=== PATIENT | male | born 1940 | race Caucasian/White ===

== ENCOUNTER 2016-09-19 07:28 | Day surgery (SDC) | payer OTHER ==
--- NOTE | 2016-09-17 13:55 | EKG Report ---
Test Performed on : 09/17/2016 1:48:36 PM Test Reason : PAT Blood Pressure : / mmHG Vent. Rate : 066 BPM Atrial Rate : 066 BPM P-R Int : 172 ms QRS Dur : 100 ms QT Int : 412 ms P-R-T Axes : 065 -18 020 degrees QTc Int : 431 ms Normal sinus rhythm. Normal ECG When compared with ECG of 09-JUL-2013 09:57, premature atrial complexes. are no longer present Confirmed by Sidney CONNELLY, Emilio Urban ([id number]) on 09/17/2016 4:28:34 PM
[2016-09-17 14:07] LABS: HEMOGLOBIN 15.4 g/dL (14.0-18.0); MCH 32.3 PG (27-31); MCHC 34.2 g/dL (33-37); MCV 94.3 FL (81-99); MPV 10.7 FL (7.4-10.4); RBC 4.77 XMIL (4.7-6.1)
[2016-09-17 14:43] LABS: AGAP 12; BUN 13 mg/dL (8-22); CALCIUM 8.8 mg/dL (8.8-10.2); CHLORIDE 102 mmol/L (98-107); COSMO 284; POTASSIUM 3.9 mmol/L (3.5-5.1); SODIUM 142 mmol/L (136-145); TCO2 28 mmol/L (25-35)
[~2016-09-19 07:28] MED LIST: KEFZOL 1 GM/D5W 50 ML ONE; LR 1,000 ML ONE; PEPCID ONE; REGLAN ONE
[2016-09-19] MEDS ORDERED: BACITRACIN OINTMENT ONE (09:00)
[2016-09-19] MEDS ORDERED: MARCAINE 0.5% ONE (09:00)
[2016-09-19] MEDS ORDERED: DIPRIVAN 1% ONE (10:27)
[2016-09-19] MEDS ORDERED: FENTANYL ONE (10:27)
[2016-09-19] MEDS ORDERED: EPHEDRINE ONE (10:46)
[2016-09-19] MEDS ORDERED: ZOFRAN ONE (10:46)
[2016-09-19] MEDS ORDERED: OFIRMEV 1000 MG/ISOTONIC SOLN 100 ML ONE (10:46)
[2016-09-19] MEDS ORDERED: CLAVE SECONDARY SET 11953 ONE (10:46)
[2016-09-19] MEDS ORDERED: XYLOCAINE-MPF 2% ONE (10:46)
[2016-09-19] MEDS ORDERED: DECADRON ONE (10:46)
[2016-09-19 11:41] VITALS: BP 162/86
--- NOTE | 2016-09-19 12:06 | OPERATIVE NOTE ---
PROCEDURE DATE: 09/19/2016 DATE OF SURGERY: 09/19/2016. SURGEON: Dr. Leandro Livingston. PREOPERATIVE DIAGNOSIS: Left spermatocele with left scrotal pain. POSTOPERATIVE DIAGNOSIS: Left spermatocele with left scrotal pain plus left hydrocele. ANESTHESIA: General via laryngeal mask. PROCEDURE PERFORMED: Left hydrocelectomy and spermatocelectomy. FINDINGS: Large left hydrocele, as well as spermatocele. INDICATION FOR PROCEDURE: This 76-year-old male has a history of chronic left scrotal pain. Evaluation revealed a left spermatocele and possible left hydrocele. DESCRIPTION OF PROCEDURE: After informed consent was obtained, the patient receiving IV antibiotics, he was taken to the main OR, placed in a supine position. General anesthesia via laryngeal mask was achieved. He was then prepped and draped in the usual sterile fashion for penile and scrotal surgery. A longitudinal skin incision was made over the scrotal raphe, coming down on the left testis. The dartos tunica was incised with the Bovie electrocautery. The testis was delivered and sharply dissected free of the dartos tunica. The tunica vaginalis was incised, and a large amount of fluid was seen around the testis consistent with hydrocele. A portion of the hydrocele sac was excised and sent to pathology. The epididymis was visualized and noted to have a cystic area at the head that was very tense, consistent with the left spermatocele. The epididymis was bluntly and sharply dissected free. The epididymis was crossclamped in the mid epididymis. The proximal end was stick-tied with 2-0 Vicryl. The distal end was dissected back to the efferent ducts, staying away from the testicular artery. The efferent ducts were crossclamped with a Pean clamp. The epididymis with spermatocele was excised and sent to pathology in its own container. The efferent ducts were oversewn with a running horizontal mattress suture of 2-0 Vicryl. After this suture was placed, the testis was irrigated. Hemostasis was completed with the Bovie electrocautery. Approximately 5 mL of 0.5% Marcaine without epinephrine was injected in the cord. The testis was returned to the scrotum in the anatomic position. The dartos tunica was reapproximated with a running locking suture of 3-0 chromic. The skin was reapproximated with a running simple suture of 3-0 chromic. Approximately 2 mL of 0.5% Marcaine were injected subcutaneously. Along the scrotal wound, a small amount of bacitracin ointment was placed. An OpSite was placed. A scrotal turban dressing using Polo was placed. This was reinforced with fluff gauze and a scrotal support was placed. He tolerated the procedure well. Estimated blood loss less than 5 mL. He was taken to the recovery room in good condition.
== END 2016-09-19 11:30 | disposition home or self-care (01) ==
LOC: PAT 07:28
PROVIDERS: ATTEND Urology
DX: N43.41 Spermatocele of epididymis, single (principal); N43.3 Hydrocele, unspecified; J44.9 Chronic obstructive pulmonary disease, unspecified; N40.0 Benign prostatic hyperplasia without lower urinary tract symptoms; I10 Essential (primary) hypertension
CPT/HCPCS: 80048; 85027; 88302; 88304; 93005; 93010; J0131; J0690; J1100; J2405; J3010; J7120; S0020

== ENCOUNTER 2018-08-29 19:00 | Inpatient (IN) ==
[2018-08-29 19:34] LABS: BASO# 0.03 X1000 (0.0-0.2); BASO% 0.4 % (0.0-0.8); EOS# 0.51 X1000 (0.0-0.7); EOS% 6.1 % (0.0-10.0); HEMATOCRIT 43.9 % (42.0-52.0); HEMOGLOBIN 14.5 g/dL (14.0-18.0); LYMPH# 1.75 X1000 (1.2-3.4); LYMPH% 20.8 % (20.5-51.1); MCH 31.4 PG (27-31); MONO% 9.5 % (1.7-9.3); MPV 10.8 FL (7.4-10.4); NEUT# 5.32 X1000 (1.4-6.5); NEUT% 63.2 % (42.2-75.2); PLT 211 X1000 (130-400); RBC 4.62 XMIL (4.7-6.1); RDW 13.1 % (11.5-14.5); WBC 8.41 X1000 (4.8-10.8)
[2018-08-29 19:42] LABS: INR 0.89; PROTIME 12.8 Seconds (11.0-16.0)
[2018-08-29 19:43] LABS: PTT 28.2 Seconds (22.3-41.8)
[2018-08-29 19:59] LABS: AGAP 13; ALB/GLOB RATIO 1.8; ALBUMIN 4.4 g/dL (3.5-5.0); ALKALINE PHOSPHATASE 91 U/L (32-122); BUN 17 mg/dL (8-22); CALCIUM 9.2 mg/dL (8.8-10.2); CHLORIDE 107 mmol/L (98-107); COSMO 292; CREATININE 1.1 mg/dL (0.7-1.2); ESTIMATED GFR > 60; GLUCOSE 133 mg/dL (70-104); GOT 24 U/L (10-34); GPT 19 U/L (10-44); SODIUM 145 mmol/L (136-145); TCO2 25 mmol/L (25-35); TOTAL BILIRUBIN 0.96 mg/dL (0.20-1.00); TOTAL PROTEIN 6.8 g/dL (6.3-8.3)
[2018-08-30 00:50] LABS: HEMATOCRIT 42.4 % (42.0-52.0); HEMOGLOBIN 14.1 g/dL (14.0-18.0)
--- NOTE | 2018-08-30 01:16 | PROVIDER DOCUMENTATION ---
This chart was entered by Sarah Hankins Scribe, acting as scribe for Chandler Chao MD. HPI-Abdominal Pain/GI Problem - General Chief Complaint: GI Bleed Stated Complaint: RECTAL BLEEDING Time Seen by Provider: 08/29/18 23:52 Source: patient Allergies/Adverse Reactions: Patient Allergies Allergy/AdvReac Type Severity Reaction Status Date / Time No Known Allergies Allergy Verified 08/30/18 00:34 Home Medications: Home Medication List Medication Instructions Recorded Confirmed Last Taken Type Aspirin [Aspirin EC] 81 mg PO DAILY 07/09/13 09/19/16 09/09/16 History 81 PRAVAstatin [Pravachol] 40 mg PO DAILY 07/09/13 09/19/16 09/19/16 05:00 History 40 Zolpidem [Ambien] 10 mg PO DAILY 07/09/13 09/19/16 09/18/16 22:15 History 10 Amlodipine Besylate 10 mg PO DAILY 11/03/14 09/19/16 09/19/16 05:00 History 10 Multivitamin [Wff-Pcdprz-Eweky] 1 tab PO DAILY 11/03/14 09/19/16 09/18/16 07:00 History 1 Potassium Chloride E.r. [Klor-Con] 20 meq PO DAILY 11/03/14 09/19/16 09/18/16 07 :00 History 20 Tamsulosin [Flomax] 0.4 mg PO DAILY 09/17/16 09/19/16 09/18/16 12:00 History 0.4 Hydrocodone/Acetaminophen [[place] 1 each PO Q4H PRN PRN #15 tablet 09/19/16 Unknown Rx 10-325 Tablet] - History of Present Illness-ABD Nature of Presenting Problems: Pt is 78/m presenting to ED w/ rectal bleeding that just started today. He sts that he has had some recent lower back pain. He sts that he has no pain and a normal appetite. Blood is bright red. hx of HTN, stent and takes 1 80mg asprin per day. Abdominal Pain Onset Location: reports: other (No pain) Quality of Pain: reports: none Severity in ED: reports: moderate Onset/Duration: reports: this morning Timing: reports: still present Activities at Onset: reports: none Exposure to sick contacts?: Yes Modifying Factors: improves with: nothing, defecating (bleeding with defecation) Associated Symptoms: reports: denies symptoms Last BM: this evening Dark Stools Present?: reports: bright red blood Rectal Bleeding: reports: blood mixed with stool, bloody diarrhea Review of Systems - Adult - REVIEW OF SYSTEMS - ADULT Constitutional: denies: chills, fever Eyes: reports: no symptoms reported Ears, Nose, Mouth & Throat: reports: no symptoms reported Cardiovascular: reports: no symptoms reported. denies: chest pain, edema Respiratory: reports: no symptoms reported Gastrointestinal: reports: rectal bleeding. denies: abdominal pain, hematemesis , nausea, poor appetite, vomiting Genitourinary: reports: no symptoms reported Integumentary: reports: no symptoms reported Neurological: reports: no symptoms reported Psychiatric: reports: no symptoms reported Endocrine: reports: no symptoms reported Hematologic/Lymphatic: reports: no symptoms reported Allergic/Immunologic: reports: no symptoms reported All Other Systems: Reviewed and Negative Past History - Adult - PAST MEDICAL HISTORY-ADULT Review of Records: reports: Old Records Reviewed, Nursing Assessment Review, Medications Reviewed, Social history reviewed & non-contributory. Major Childhood Illnesses: reports: denies history Cardiovascular: reports: CAD, HTN, hyperlipidemia Respiratory: reports: COPD Neurological: reports: CVA - PRIOR SURGERIES/PROCEDURES Surgical/Procedure History: reports: cholecystectomy, cardiac stent, joint replacement - IMMUNIZATION STATUS Flu Vaccine: See Nurse Assessment - FAMILY HISTORY Family History: reviewed, not pertinent - SOCIAL HISTORY Smoking: denies, non-smoker Substance Use: none/never Alcohol Use Frequency: never Living Situation: family Physical Exam-General - PHYSICAL EXAM-ADULT Initial Vital Signs Reviewed: Yes - CONSTITUTIONAL General Appearance: appears well, alert, no apparent distress - EYES Eyes: PERRL/EOMI - HEAD, EARS, NOSE, MOUTH & THROAT HENMT: normocephalic/atraumatic, moist mucous membranes, normal ENT inspection, TMs normal, pharynx normal - NECK Neck: non-tender, full range of motion, supple, normal inspection - RESPIRATORY Respiratory: chest non-tender, lungs clear, normal breath sounds - CARDIOVASCULAR Cardiovascular: regular rate, rhythm. 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 nml as tested, grossly normal - PSYCHIATRIC Psych/Mental Status: normal mood/affect, normal thought content, normal thought process, oriented x 3 Progress - PLAN OF CARE/RESULTS Progress/Plan/Lab Results: Vital Signs - 8 hr 08/29/18 19:10 08/29/18 23:51 Temperature 97.6 F Pulse Rate 79 75 Respiratory Rate 18 18 Blood Pressure 153/72 166/79 O2 Sat by Pulse Oximetry 97 97 08/29/18 19:39 Stool Occult Blood (TOMASA) - Final Stool Laboratory Results - last 24 hr 08/29/18 08/29/18 08/29/18 19:15 19:15 19:15 WBC 8.41 RBC 4.62 L Hgb 14.5 Hct 43.9 MCV 95.0 MCH 31.4 H MCHC 33.0 RDW Std Deviation 13.1 Plt Count 211 MPV 10.8 H Immature Gran % (Auto) 0.0 Neut % (Auto) 63.2 Lymph % (Auto) 20.8 Grady % (Auto) 9.5 H Eos % (Auto) 6.1 Baso % (Auto) 0.4 Immature Gran # (Auto) 0.00 Neut # (Auto) 5.32 Lymph # (Auto) 1.75 Grady # (Auto) 0.80 H Eos # (Auto) 0.51 Baso # (Auto) 0.03 PT 12.8 INR 0.89 PTT (Actin FS) 28.2 Sodium 145 Potassium 4.0 Chloride 107 Carbon Dioxide 25 Anion Gap 13 BUN 17 Creatinine 1.1 Estimated GFR/1.73 m2 > 60 BUN/Creatinine Ratio 15 Glucose 133 H Calculated Osmolality 292 Calcium 9.2 Total Bilirubin 0.96 AST 24 ALT 19 Alkaline Phosphatase 91 Total Protein 6.8 Albumin 4.4 Globulin 2.4 Albumin/Globulin Ratio 1.8 08/30/18 00:25 WBC RBC Hgb 14.1 Hct 42.4 MCV MCH MCHC RDW Std Deviation Plt Count MPV Immature Gran % (Auto) Neut % (Auto) Lymph % (Auto) Grady % (Auto) Eos % (Auto) Baso % (Auto) Immature Gran # (Auto) Neut # (Auto) Lymph # (Auto) Grady # (Auto) Eos # (Auto) Baso # (Auto) PT INR PTT (Actin FS) Sodium Potassium Chloride Carbon Dioxide Anion Gap BUN Creatinine Estimated GFR/1.73 m2 BUN/Creatinine Ratio Glucose Calculated Osmolality Calcium Total Bilirubin AST ALT Alkaline Phosphatase Total Protein Albumin Globulin Albumin/Globulin Ratio Orders Category Date Time Status CBC WITH ELECTRONIC DIFF [HEME] Stat Lab 08/29/18 19:15 Completed COMPREHENSIVE METABOLIC PANEL [CHEM] Stat Lab 08/29/18 19:15 Completed H/H [HGB AND HCT] [HEME] Stat Lab 08/30/18 00:25 Completed OCCULT BLOOD SCREENING [STOOL] Stat Lab 08/29/18 19:39 Completed PROTIME WITH INR [COAG] Stat Lab 08/29/18 19:15 Completed PTT [COAG] Stat Lab 08/29/18 19:15 Completed GI Bleed (possible) Stat Oth 08/29/18 19:16 Ordered Result Diagrams: 08/30/18 00:25 08/29/18 19:15 Departure - Departure Date of Disposition Decision: 08/30/18 Time of Disposition Decision: 00:56 DIAGNOSIS: BRBPR (bright red blood per rectum) Disposition: HOME 01 Certified Medical Emergency: Emergent Condition: Good Additional Freetext Instructions: ED Follow Up Instructions: You have been treated by a care provider in the Emergency Department. These instructions are being provided to you so you can have an understanding of how to care for yourself upon discharge. Upon discharge from the Emergency Department, you are responsible for making arrangements for follow-up care by a physician of your choice. Take all prescribed medications as directed. Return to the Emergency Department immediately for any new or worsening symptoms. You may call the Physician Referral phone number at [phone] to obtain a list of Physicians who are taking new patients. CALL AND FOLLOW UP WITH YOUR GASTROINTESTINAL DOCTOR WITHIN [address] MC'S OFFICE TOMORROW AND MAKE AN APPOINTMENT. Referrals and Follow-Ups: Viral Mc MD [ACTIVE STAFF PHYSICIAN] - Theron Edgar MD [Primary Care Provider] - - Critical Care Note This patient required my direct & personal management of CC.: No Attestation - Physician/ MARGARET Attestation Patient care was provided by Advanced Practice Provider:: No The physician spent face to face time with patient:: Yes Advanced Practice Provider documentation review:: Supervising physician onsite and consulted in the evaluation and care of this patient. The physician did have a face to face encounter with the patient. This chart was documented by the indicated scribe, (Sarah Hankins Scribe) and accurately reflects the services I performed and decisions made by me, Chandler Chao MD, as attested by the provider's signature.
--- NOTE | 2018-08-30 02:30 | HISTORY AND PHYSICAL ---
PRIMARY CARE PHYSICIAN: Dr. Edgar. CHIEF COMPLAINT: Bright red blood per rectum. HISTORY OF PRESENTING ILLNESS: A 78-year-old male with a history of hypertension, coronary artery disease, who had presented to the emergency department with 2 days' history of having bright red blood per rectum. The patient states that he had about 5 episodes of if. The patient states that he was feeling weak, and subsequently had come to the emergency department. In the ED, he was evaluated, and as per ER physician, he had gross blood that was seen. Due to his presenting symptoms, it was thought that he would need admission for further management. At the time of my examination, he had denied any headache, fever, chills, chest pain, shortness of breath, or any weight changes. Has complained of blood in the stools. PAST MEDICAL HISTORY: Includes hypertension, coronary artery disease. PAST SURGICAL HISTORY: Cholecystectomy, right knee surgery, coronary stent, cataract surgery. ALLERGIES: No known drug allergies. CURRENT MEDICATIONS: Ascorbic acid 1000 mg p.o. daily, aspirin 81 mg p.o. daily, Aricept 5 mg p.o. daily, losartan 100 mg p.o. daily, Namenda 10 mg p.o. b.i.d., metoprolol 25 mg p.o. daily, pravastatin 40 mg p.o. at bedtime, Ambien 10 mg p.o. daily. SOCIAL HISTORY: He smoked cigars years ago. History of alcohol use in the past. Denies any illicit drug use. FAMILY HISTORY: Positive for coronary disease in the mother. REVIEW OF SYSTEMS: A 14-point review of systems listed as in the HPI. Other systems negative. PHYSICAL EXAMINATION: GENERAL: A cooperative, friendly male. He is resting comfortably now. VITAL SIGNS: Temperature 97.6 degrees. Pulse 79, respiration 18, blood pressure 153/72. HEENT: Atraumatic, normocephalic. Extraocular movements intact. PERRLA. NECK: Supple. CHEST: Clear to auscultation. CARDIOVASCULAR: Regular rate and rhythm. ABDOMEN: Soft. Positive bowel sounds. EXTREMITIES: No edema. NEUROLOGIC: He is awake, alert, oriented x3. : No bladder distention. SKIN: Warm. LABORATORIES AND STUDIES: WBC 8.41. Hemoglobin 14.5, hematocrit 43.9, platelets 221,000. Sodium 145, potassium 4.0, chloride 107, CO2 25, BUN is 17, creatinine is 1.1, glucose is 133. ASSESSMENT: A 78-year-old male with a history of hypertension, coronary artery disease, who had presented to the emergency department with a 1-day history of having bright red blood per rectum. Due to his presenting symptoms, he will need admission for further management. 1. Gastrointestinal bleed/bright red blood per rectum. 2. Coronary artery disease. 3. Hypertension. PLAN: 1. We will admit the patient to the medical floor with telemetry. 2. Keep patient NPO. Continue with IV fluids. 3. We will consult Gastroenterology. 4. We will monitor blood pressure closely. 5. Put patient on deep venous thrombosis prophylaxis with sequential compression devices. 6. We will continue to follow and reassess, and make further recommendation based on the patient's clinical course. cc: Erich Madsen MD
[2018-08-30] MEDS ORDERED: ZOFRAN IV PRN (03:16)
[2018-08-30] MEDS: NS 1,000 ML IV SCH ×2 (03:51→16:17)
--- NOTE | 2018-08-30 12:15 | PROGRESS NOTE ---
DATE: 08/30/2018 SUBJECTIVE: Mr. King was admitted yesterday. He had a period of rectal bleeding and quite a bit of bleeding by his report, a 1-day history of it. So, he has not had as much this morning. No abdominal pain. No fever or chills. Hematocrit is 43, hemoglobin 14 yesterday on presentation. Follow-up hematocrit 42, hemoglobin 14. Chemistries look good. Creatinine 1.1. ASSESSMENT AND PLAN: 1. Lower gastrointestinal rectal bleeding. Suspect probably diverticular bleed. He does have known diverticulosis. Hemodynamically stable. Hematocrit and hemoglobin are dropping. I suspect we will have to explore him on Saturday. 2. History of coronary artery disease. Aware. 3. History of hypertension. He is not on any blood thinner. He is getting normal saline at 80 mL an hour. cc: Emilio Little MD
[2018-08-30 12:53] LABS: HEMATOCRIT 44.6 % (42.0-52.0); HEMOGLOBIN 14.9 g/dL (14.0-18.0)
--- NOTE | 2018-08-30 16:10 | CONSULTATION ---
DATE OF CONSULTATION: 08/30/2018 REASON FOR CONSULTATION: Rectal bleeding. HISTORY OF PRESENT ILLNESS: This is a 78-year-old male who has seen Dr. Dang in the past. Patient reports having a colonoscopy about 3 years ago and was told he had diverticulosis. Patient reports onset of symptoms on Saturday around 1:30. He reports having multiple episodes of bright red blood per rectum. His is at the bedside and states the 1st 3 times was with a bowel movement and then in the emergency room he had several episodes of explosive bleeding. He reports weakness but denies dizziness or lightheadedness. No reported chest pain or shortness of breath. He denies abdominal pain. He does take an aspirin for heart disease but no other blood thinners. As noted, he reports his last colonoscopy was approximately [address] Dang. PAST MEDICAL HISTORY: Coronary artery disease, hypertension, COPD. PAST SURGICAL HISTORY: Cholecystectomy, right knee surgery, cardiovascular stent placement, cataract surgery. ALLERGIES: No known drug allergies. HOME MEDICATIONS: Vitamin C 1000 mg daily, aspirin 81 mg daily, vitamin B12 1000 mcg daily, Aricept 5 mg daily, fluticasone 1 spray to nostril as needed, losartan 100 mg daily, memantine 10 mg twice a day, Lopressor 25 mg daily, Pravachol 40 mg every night, Ambien 10 mg daily. SOCIAL HISTORY: Reports quitting tobacco 40 years ago. Reports quitting alcohol 30 years ago. 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 He is . FAMILY HISTORY: Positive for heart disease in mother. REVIEW OF SYSTEMS: Per history of present illness. PHYSICAL EXAMINATION: Vital Signs: Temperature 98.2 degrees, pulse 68, respirations 16, blood pressure 158/75. General: Patient is awake, alert, in no acute distress. HEENT: Normocephalic atraumatic. Pupils equal, round, reactive to light. Sclerae nonicteric. Respiratory: Lung sounds clear bilaterally. Cardiovascular: Regular rate and rhythm. Abdomen: Soft. Positive bowel sounds. Nontender. Extremities: No lower extremity edema noted. Neurologically: Cranial nerves 2-12 grossly intact. Patient is awake, alert, oriented to person, place , and time. DIAGNOSTIC RESULTS: Laboratory. Hematology. WBC 8.41, hemoglobin 14.9, hematocrit 44.6, MCV 95.0, platelet 211,000. Coagulation. Pro time 12.8, INR 0.89, PTT 28.2. Chemistry. Sodium 145, potassium 4.0, chloride 107, CO2 25, BUN 17, creatinine 1.1, glucose 133, calcium 9.2, total bilirubin 0.96, AST 24, ALT 19, alkaline phosphatase 91. ASSESSMENT AND PLAN: 1. Rectal bleeding. Possibility of diverticular bleed versus hemorrhoidal. Bleeding seems to have slowed down. He reports a bowel movement this morning that looked like old blood. 2. Coronary artery disease. 3. Hypertension. Continue to monitor for further signs of active bleeding. Monitor hemoglobin and hematocrit which is stable. Will continue to follow over the weekend. Dr. Arevalo's group will take over on Saturday since this is a patient of Dr. Dang. If patient has continued active bleeding he may need colonoscopy urgently, otherwise would continue to monitor and further plans to be made according to his progress. I have discussed this case with Dr. Mc. Thank you for this consultation. Dictated by KACEY Wallace for Viral Mc MD cc: KACEY Santiago MD [facility]
[2018-08-30] MEDS: ASPIRIN PO SCH (16:16)
[2018-08-30] MEDS: COZAAR PO SCH (16:17)
[2018-08-30] MEDS: ARICEPT PO SCH (16:17)
[2018-08-30] MEDS: NAMENDA PO SCH ×2 (16:17→21:28)
[2018-08-30] MEDS: VITAMIN C PO SCH (16:17)
[2018-08-30] MEDS: LOPRESSOR PO SCH (16:17)
[2018-08-30] MEDS: VITAMIN B-12 PO SCH (16:17)
[2018-08-30] MEDS ORDERED: PRAVACHOL PO SCH (21:00)
[2018-08-30] MEDS ORDERED: AMBIEN PO SCH (21:00)
[2018-08-31 08:07] LABS: BASO# 0.02 X1000 (0.0-0.2); BASO% 0.2 % (0.0-0.8); EOS# 0.49 X1000 (0.0-0.7); EOS% 5.6 % (0.0-10.0); HEMATOCRIT 46.1 % (42.0-52.0); HEMOGLOBIN 15.3 g/dL (14.0-18.0); IMM GRAN# 0.02 X1000 (0.0-0.04); IMM GRAN% 0.2 % (0.0-0.5); LYMPH# 2.22 X1000 (1.2-3.4); LYMPH% 25.5 % (20.5-51.1); MCH 31.9 PG (27-31); MCHC 33.2 g/dL (33-37); MONO# 0.74 X1000 (0.11-0.59); MONO% 8.5 % (1.7-9.3); MPV 10.7 FL (7.4-10.4); NEUT# 5.21 X1000 (1.4-6.5); PLT 214 X1000 (130-400); RDW 13.4 % (11.5-14.5)
[2018-08-31 08:35] LABS: AGAP 9; BUN 11 mg/dL (8-22); CALCIUM 8.9 mg/dL (8.8-10.2); CHLORIDE 106 mmol/L (98-107); COSMO 280; CREATININE 1.1 mg/dL (0.7-1.2); ESTIMATED GFR > 60; GLUCOSE 91 mg/dL (70-104); SODIUM 141 mmol/L (136-145); TCO2 26 mmol/L (25-35)
[2018-08-31] MEDS: VITAMIN B-12 PO SCH (10:13)
[2018-08-31] MEDS: ARICEPT PO SCH (10:14)
[2018-08-31] MEDS: COZAAR PO SCH (10:14)
[2018-08-31] MEDS: NAMENDA PO SCH (10:14)
[2018-08-31] MEDS: ASPIRIN PO SCH (10:14)
[2018-08-31] MEDS: VITAMIN C PO SCH (10:14)
[2018-08-31] MEDS: LOPRESSOR PO SCH (10:14)
--- NOTE | 2018-08-31 12:51 | PROGRESS NOTE ---
DATE: 08/31/2018 SUBJECTIVE: Mr. King is sitting up in the bed, conscious, alert. Appears to be in no distress. He reports that he has not had any rectal bleeding today. He feels comfortable. Has tolerated a liquid diet well without any other GI symptoms. OBJECTIVE: Vital Signs: Temperature 97.7 degrees, pulse 61 per minute, breathing 17, blood pressure was 154/64. Abdomen: Full, soft, nontender. Bowel sounds are audible. Extremities: No pedal edema noted. LABORATORIES: Reviewed. His hemoglobin is 15.3, hematocrit 46.1. BNP was normal. IMPRESSION AND PLAN: Lower gastrointestinal bleed, small amount. His hemoglobin and hematocrit did not budge. He is hemodynamically stable. Most likely his bleeding will is from internal hemorrhoid. I doubt that this is diverticular or other cause. He is stable enough that he could be discharged home. He tells me that he will be following Dr. Dang, his copyright expert, and Dr. Edgar, his primary care. He will schedule a colonoscopy which can be done as an outpatient. In the meantime, I advised him to take it easy, rest as much as he can, and continue on a full liquid diet until he sees his physicians. cc: MD Dr. Herve Amador
--- NOTE | 2018-08-31 13:49 | DISCHARGE SUMMARY ---
ADMISSION DATE: 08/30/2018 DISCHARGE DATE: 08/31/2018 PRIMARY CARE PHYSICIAN: Theron Edgar MD. HISTORY OF PRESENT ILLNESS/HOSPITAL COURSE: He had some bright red blood per his rectum. A 78- year-old with history of hypertension and coronary artery disease. Presented to the emergency room with a 2-day history of having bright red blood per rectum. He had about 5 episodes. The patient states that he was feeling weak and subsequently came to the emergency room. Evaluated in emergency room and he had some gross blood from the rectum. Did not see any rectal lesions and so we watched him in the hospital. His hematocrit really did not drop. Hematocrit on presentation was 43 and hemoglobin 14 and after fluids, hematocrit was 46 and hemoglobin 15 today. Renal function looks good. We put him on some full liquids which he seemed to tolerate well. Dr. Mc said he can go home. Follow up with Dr. Edgar next week. It is time for him to get a colonoscopy as well. I would suspect this is diverticular bleeding. PHYSICAL EXAMINATION: Vital Signs: Temperature 97.7 degrees, pulse 62, respirations 17, blood pressure 154/64. Lungs: Clear in all lung ruff. Cardiovascular: Regular rhythm and rate without murmur. S3. DISCHARGE MEDICATIONS: He will be on ascorbic acid, vitamin C once a day. We will give him his aspirin 81 mg a day, vitamin B12 1000 mcg daily, Aricept 5 mg a day, fluticasone nasal spray he can take, losartan 100 mg a day, memantine 10 mg b.i.d., Lopressor 25 mg a day, Pravachol 40 mg at bedtime, Ambien 10 mg at bedtime. PLAN: He will follow up with Dr. Edgar next week. cc: Emilio Little MD
[2018-08-31 14:04] VITALS: BP 156/71
== END 2018-08-31 05:30 | disposition home or self-care (01) | DRG 379 ==
LOC: ED 19:00 → SUATTDRO 08-30 02:59 → 3N 08-30 02:59
PROVIDERS: ATTEND Emergency Medicine
CPT/HCPCS: 80048; 80053; 82270; 85014; 85018; 85025; 85610; 85730; 99285; A9270; J7030

== ENCOUNTER 2019-10-14 05:57 | Day surgery (SDC) ==
[2019-10-14] MEDS ORDERED: KEFZOL 1 GM/D5W 2 GM/100 ML IVPB ONE (06:19)
[2019-10-14] MEDS ORDERED: LR 1,000 ML ONE ×2 (06:19→07:39)
[2019-10-14 07:01] LABS: HEMATOCRIT 49.9 % (42.0-52.0); HEMOGLOBIN 16.6 g/dL (14.0-18.0); MCH 31.6 PG (27-31); MCHC 33.3 g/dL (33-37); MPV 11.4 FL (7.4-10.4); RBC 5.25 XMIL (4.7-6.1); RDW 13.6 % (11.5-14.5); WBC 9.47 X1000 (4.8-10.8)
[2019-10-14] MEDS ORDERED: DIPRIVAN 1% ONE (07:13)
[2019-10-14] MEDS ORDERED: NORCURON ONE ×2 (07:14→11:48)
[2019-10-14] MEDS ORDERED: QUELICIN (DOSE) ONE ×2 (07:14→09:13)
[2019-10-14] MEDS ORDERED: XYLOCAINE-MPF 2% ONE (07:14)
[2019-10-14] MEDS ORDERED: FENTANYL ONE (07:19)
[2019-10-14] MEDS ORDERED: SODIUM CHLORIDE 0.9% 10 ML ONE (07:19)
[2019-10-14] MEDS ORDERED: MARCAINE 0.25% PF/EPI 1:200,000 ONE (07:39)
--- NOTE | 2019-10-14 07:47 | EKG Report ---
Test Performed on : 10/14/2019 06:33:12 AM Test Reason : preop Blood Pressure : / mmHG Vent. Rate : 065 BPM Atrial Rate : 065 BPM P-R Int : 166 ms QRS Dur : 096 ms QT Int : 456 ms P-R-T Axes : 025 000 023 degrees QTc Int : 474 ms Normal sinus rhythm. Normal ECG When compared with ECG of 17-SEP-2016 13:48, No significant change was found Confirmed by Sidney CONNELLY, Emilio Urban ([id number]) on 10/16/2019 9:09:52 AM
[2019-10-14 08:04] LABS: AGAP 14; BUN 15 mg/dL (8-22); CALCIUM 9.3 mg/dL (8.8-10.2); CHLORIDE 105 mmol/L (98-107); COSMO 281; ESTIMATED GFR > 60; GLUCOSE 86 mg/dL (70-104); POTASSIUM 4.4 mmol/L (3.5-5.1); SODIUM 141 mmol/L (136-145); TCO2 22 mmol/L (25-35)
[2019-10-14] MEDS ORDERED: ROBINUL ONE ×2 (09:36→13:29)
[2019-10-14] MEDS ORDERED: MANNITOL ONE ×2 (10:49→12:39)
[2019-10-14 11:30] LABS: URINE SOURCE CATH
[2019-10-14 11:36] LABS: BILIRUBIN URINE NEGATIVE (NEGATIVE); BLOOD URINE NEGATIVE (NEGATIVE); COLOR STRAW; GLUCOSE URINE NEGATIVE (NEGATIVE); KETONE URINE NEGATIVE (NEGATIVE); LEUKOCYTES URINE NEGATIVE (NEGATIVE); NITRITE URINE NEGATIVE (NEGATIVE); PH URINE 7.5; PROTEIN URINE NEGATIVE (NEGATIVE); SP GRAVITY URINE 1.008; TURBIDITY URINE CLEAR (CLEAR); UROBILINOGEN URINE NORMAL (NORMAL)
[2019-10-14 11:38] LABS: UR EPITHELIAL CELLS <10 /HPF (<10); URINE BACTERIA NEGATIVE /HPF; URINE RBC <10 /HPF (<10); URINE WBC <10 /HPF (<10)
[2019-10-14] MEDS ORDERED: STERILE WATER INJ. ONE (11:48)
[2019-10-14] MEDS ORDERED: EPHEDRINE ONE (12:03)
[2019-10-14] MEDS ORDERED: ZOFRAN ONE (14:14)
[2019-10-14] MEDS ORDERED: NS 1,000 ML ONE (14:14)
[2019-10-14] MEDS: NS 1,000 ML IV SCH (14:20)
[2019-10-14] MEDS ORDERED: OFIRMEV 1000 MG/ISOTONIC SOLN 1,000 MG/100 ML BOTTLE IV PRN (14:30)
[2019-10-14] MEDS ORDERED: OXY IR PO PRN ×2 (14:30)
[2019-10-14] MEDS ORDERED: LABETALOL IV PRN (14:30)
[2019-10-14] MEDS ORDERED: PHENERGAN IV PRN (14:30)
[2019-10-14] MEDS ORDERED: BENADRYL LIQUID PO PRN (14:30)
[2019-10-14] MEDS ORDERED: SODIUM CHLORIDE 0.9% INJ PRN (14:30)
[2019-10-14] MEDS ORDERED: OXY IR ONE (14:47)
[2019-10-14] MEDS ORDERED: OFIRMEV 1000 MG/ISOTONIC SOLN 1,000 MG/100 ML BOTTLE ONE (14:47)
--- NOTE | 2019-10-14 17:03 | OPERATIVE NOTE ---
PROCEDURE DATE: 10/14/2019 PREOPERATIVE DIAGNOSIS: Left renal mass. POSTOPERATIVE DIAGNOSIS: Left renal mass. PROCEDURE PERFORMED: Laparoscopic robot-assisted left partial nephrectomy. ANESTHESIA: General endotracheal. FINDINGS: An approximate 3 cm mass in the left upper posterior kidney. INDICATION FOR PROCEDURE: This 79-year-old male was having abdominal pains. He had a CT stone search that revealed a left renal mass. A contrasted scan was performed that was consistent with renal malignancy. DESCRIPTION OF PROCEDURE: After informed consent was obtained from the patient and him receiving IV antibiotics, he was taken to the main OR, and placed in the supine position. General endotracheal anesthesia was achieved. He then had a Santoro catheter placed under sterile conditions. He then was placed with the left side elevated to about 45 degrees with gel rolls. His right leg was bent at the knee, and he was fixed to the table. He was then prepped and draped in the usual sterile fashion for abdominal and left flank surgery. The table was rotated all the way to his left to bring him almost horizontal with the floor. He was then prepped and draped as stated for left flank surgery. A Veress needle was used to achieve pneumoperitoneum to 15 cm of water. The 12 mm port was placed 1 handbreadth above the umbilicus in the midline. A camera was passed through this port. The robot trocars were placed with the #2 arm placed in the midclavicular line just below the costal margin. The #1 arm was placed in the midclavicular line just below the umbilicus. A 12 mm behavioral health assistant port was placed just below the umbilicus in the midline. The 4th arm was placed just above the right anterior superior iliac spine. After the robot trocars were placed, the patient was rotated all the way to his right such that he was in a flank position. The robot was docked. The procedure was started by taking down the descending colon along the white line of Toldt. This was mobilized medially to the aorta. The splenocolic ligaments were taken down such that the spleen rotated medially. The 4th arm was then used to raise the lower pole of the kidney and the area was dissected and the gonadal vein was visualized. The dissection continued and the ureter was visualized. The gonadal vein was sharply and bluntly dissected up to where it inserted into the left renal vein. The ureter was lifted cephalad and the gonadal vein was left in place. This was dissected down to the psoas muscle and the 4th arm was used to place the kidney on stretch. The tissue between the gonadal vein and ureter was dissected up to the renal vein. The renal artery was visualized during this dissection. It was sharply dissected free and a vessel loop was placed around the artery. The renal vein was likewise dissected and a vessel loop was placed around the renal vein. The kidney was dropped back onto the psoas muscle by removing the 4th arm. The perirenal fat was dissected off the kidney. It was very adhered to the renal surface. There was also a very large amount pararenal fat but this was dissected down to the renal capsule and eventually the kidney was completely exposed on the anterior and most of the posterior side. The 4th arm was able to pull the kidney medially to complete this dissection. The drop-in ultrasound probe was placed and the tumor was visualized, it measured 2.5 x 3 cm. The proposed incision line was marked with the electrocautery all around the tumor on the anterior and posterior sides. After the proposed incision was marked the artery was clamped with a curved bulldog clamps. The vein was then clamped with a straight clamp. The tumor was excised all the way down to the sinus fat that was noted on the CT scan. After the tumor was excised the 3-0 V-Loc suture using an RB-1 was placed through the renal capsule and then it was ran along the base of the tumor excision. Two of these sutures were placed to secure the collecting system as well as some open vessels. After these were placed the renal capsule was reapproximated by placing an 0 V-Loc suture through the renal capsule and coming out at the medulla on the inside and then back through the medulla on the opposite side and back through the capsule. A Hem-o-carolyn clip was placed on the V-Loc suture and tension was placed on the suture. A total of 7 sutures were placed. These were tightened such that the kidney defect was able to be completely reapproximated. The bulldog clamp was removed from the artery and the straight clamp was removed from the vein graft. Evicel was placed over the defect in the kidney. There were no bleeding areas seen. Ischemic time was about 34 minutes. The pararenal fat was then placed back over the kidney and held in place with the Evicel. A 19-[place] Antonio drain was brought through the 4th robot arm trocar at the right anterior superior iliac spine. The trocar was removed and the drain sutured in place. The vessel loops were removed from around the artery and vein and passed out. The bulldog clamps were likewise removed from the abdominal cavity. He tolerated the procedure well. Estimated blood loss 200 mL. The robot was then undocked. The table was rotated such that the patient was almost parallel to the floor. Robot trocars were all removed. The pneumoperitoneum resolved. The specimen had been placed in an EndoCatch bag that was brought out through the behavioral health assistant port. This incision had to be extended a very small amount to remove the tumor. The abdominal rectus fascia at the behavioral health assistant port was closed with 2 interrupted sutures of #1 Maxon. The camera port incision fascia was reapproximated with a 2-0 Vicryl on a UR- 6 needle. The subcutaneous tissue over the Maxon sutures were reapproximated with interrupted sutures of 3-0 Vicryl. The skin was reapproximated with clips and island dressings were placed. He was taken to the recovery room extubated in good condition. cc: Leandro Livingston MD [facility]
[2019-10-14] MEDS: KEFZOL 2 GM/D5W 2 GM/50 ML IVPB IV SCH (17:57)
[2019-10-14] MEDS ORDERED: PRAVACHOL PO SCH (21:00)
[2019-10-14] MEDS ORDERED: AMBIEN PO SCH (21:00)
[2019-10-14] MEDS ORDERED: FLOMAX PO SCH (21:00)
[2019-10-14] MEDS: PEPCID PO SCH (21:24)
[2019-10-14] MEDS: PERIDEX MT SCH (21:25)
[2019-10-14] MEDS: COLACE PO SCH (21:25)
[2019-10-15] MEDS: KEFZOL 2 GM/D5W 2 GM/50 ML IVPB IV SCH ×2 (00:58→09:21)
[2019-10-15 06:44] LABS: CREATININE BODY FLUID 1.2 mg/dL
[2019-10-15] MEDS: NS 1,000 ML IV SCH (06:50)
[2019-10-15 07:15] LABS: HEMATOCRIT 44.6 % (42.0-52.0); HEMOGLOBIN 15.1 g/dL (14.0-18.0); MCH 32.8 PG (27-31); MCHC 33.9 g/dL (33-37); MCV 96.7 FL (81-99); MPV 11.1 FL (7.4-10.4); RBC 4.61 XMIL (4.7-6.1); WBC 14.8 X1000 (4.8-10.8)
[2019-10-15 07:32] LABS: CALCIUM 7.9 mg/dL (8.8-10.2); CREATININE 1.4 mg/dL (0.7-1.2); POTASSIUM 4.4 mmol/L (3.5-5.1)
[2019-10-15] MEDS ORDERED: LOPRESSOR PO SCH (09:00)
[2019-10-15] MEDS ORDERED: ASPIRIN EC PO SCH (09:00)
[2019-10-15] MEDS ORDERED: COZAAR PO SCH (09:00)
[2019-10-15] MEDS: COLACE PO SCH (09:20)
[2019-10-15] MEDS: PEPCID PO SCH (09:20)
[2019-10-15] MEDS: PERIDEX MT SCH (09:21)
[2019-10-15 11:24] VITALS: BP 155/79
== END 2019-10-15 14:09 | disposition other institution (70) ==
LOC: 4N 05:57 → OR 05:57
PROVIDERS: ATTEND Urology